=== PATIENT | male | born 1970 | race Caucasian/White ===

== ENCOUNTER 2025-05-02 00:35 | Emergency (ER) | payer SELFPAY ==
[2025-05-02] MEDS: Ketamine 200 MG/20 ML MDV IVPUSH ONE ×2 (00:47→01:03)
[2025-05-02] MEDS: Succinylcholine 200 MG/10 ML MDV IVPUSH ONE (00:48)
[2025-05-02 01:09] LABS: MEAN PLATELET VOLUME 9.9 fL (6.0-10.0); PLATELET COUNT,PLT 163 K/uL (150-400); RED BLOOD CELL COUNT 4.31 M/uL (4.50-6.50); RED CELL DISTRIBUTION WIDTH 13.9 % (11.0-16.0); WHITE BLOOD CELL COUNT,WBC 7.5 K/uL (4.0-11.0)
[2025-05-02 01:16] LABS: INR 1.0 (1.0-3.5); PTT,PARTIAL THROMBOPLSTIN TIME 19.6 SECONDS (24.4-33.2)
[2025-05-02 01:23] LABS: BASE EXCESS VENOUS -5.6 mm/L (-2-3); BICARBONATE,VENOUS 22.1 mmol/L (23.0-28.0); PCO2 VENOUS 53.3 mm/Hg (41-51); PH,VENOUS 7.22 (7.31-7.41)
[2025-05-02 01:29] LABS: A/G RATIO 1.1 (0.8-2.0); ALANINE AMINOTRANSFERASE,ALT 59 U/L (12-78); ASPARTATE AMNIOTRANSFERASE,AST 53 U/L (15-37); BILIRUBIN TOTAL 0.3 mg/dL (0.0-1.0); BLOOD UREA NITROGEN,BUN 17 mg/dL (8-26); CARBON DIOXIDE,CO2 24.7 mmol/L (21.0-32.0); CHLORIDE,CL 106 mmol/L (98-107); CREATININE 1.21 mg/dL (0.70-1.30); ESTIMATED GFR 71 mL/min (>60); GLUCOSE RANDOM 117 mg/dL (74-100); POTASSIUM,K 4.2 mmol/L (3.5-5.1); PROTEIN TOTAL,TP 6.4 g/dL (6.4-8.2); SODIUM,NA 141 mmol/L (136-145)
[2025-05-02 01:43] LABS: BAND PERCENT MAN 6.0 %; LYMPHOCYTES PERCENT MAN 27.0 % (20.0-40.0); SEG NEUTROPHILS PERCENT MAN 61.0 % (45.0-70.0)
[2025-05-02 01:44] LABS: BASOPHILS PERCENT MAN 0.0 % (0.0-0.5); EOSINOPHILS PERCENT MAN 1.0 % (1.0-5.0); LYMPHOCYTES % ATYPICAL MANUAL 0.0 %; MONOCYTES PERCENT MAN 5.0 % (3.0-10.0)
[2025-05-02] MEDS: Midazolam 1 MG/ML 2 ML SDV IVPUSH ONE (02:30)
[2025-05-02 06:39] VITALS: BP 90/47; PULSE 64
[2025-05-02] MEDS ORDERED: Sodium Chloride 0.9% 10 ML Syringe FLUSH PRN (09:10)
== END 2025-05-02 02:53 ==
LOC: LB.ED 00:35
DX: S00.01XA Abrasion of scalp, initial encounter (principal); E86.0 Dehydration; Z79.82 Long term (current) use of aspirin; Z79.899 Other long term (current) drug therapy; V89.2XXA Person injured in unspecified motor-vehicle accident, traffic, initial encounter
CPT/HCPCS: 31500; 36415; 51702; 70450; 71045; 71250; 72125; 74176; 80053; 80307; 82803; 82947; 83605; 84484; 85025; 85610; 85730; 86850; 86900; 86901; 93005; 93010; 96361; 96365; 96366; 96375; 96376; 99285; 99291; 99292; A0425; A0427; G0390; J0330; J2250; J3490; J7030; J7050